=== PATIENT | female | born 1965 ===

== ENCOUNTER 2017-04-02 13:16 | Emergency (ER) | payer SELFPAY ==
--- NOTE | 2017-04-02 14:04 | EDM.PDOC ---
ED HPI GENERAL MEDICAL PROBLEM - General Chief Complaint: Back Pain or Injury Stated Complaint: FELL AND HURT BACK, KIDNEY PROBLEM TOO Time Seen by Provider: 04/02/17 13:40 Source of Information: Reports: Patient History Limitations: Reports: No Limitations - History of Present Illness INITIAL COMMENTS - FREE TEXT/NARRATIVE: Patient is a 51 year old female who presents to the ER with complaints of lower back and right hip pain after falling on the rocks while fishing. Patient reports she is originally from [place] but is here visiting her father for his 70th birthday. She was climbing up the rocks and slipped. She states she twisted with the fall and her chronic pain has worsened. She reports that she is scheduled to have back surgery next month. She states she normally takes 30 mg oxycodone Q 6 hours PRN lower back pain. She reports she took her last pills yesterday, but forgot to bring the remainder of her pain meds. She is asking for "at least 3 or 4 days of pain meds to cover until she can get back home to be seen." She reports that she is here for 10 days. Denies loss of bowel or bladder control. Reports some numbness and tingling to right leg, which is her baseline. No other associated symptoms. Onset: Today Onset Date: 04/02/17 Onset Time: 12:00 Location: Reports: Back Improves with: Reports: Medication Worsens with: Reports: Movement Associated Symptoms: Reports: No Other Symptoms Treatments [employer]: Reports: Other Medication(s) (oxycodone) Right Flank Pain Score (Numeric/FACES): 8 - Related Data Allergies Allergy/AdvReac Type Severity Reaction Status Date / Time cyclobenzaprine Allergy Hives Verified 04/02/17 13:22 [From Flexeril] Sulfa (Sulfonamide Allergy Hives Verified 04/02/17 13:22 Antibiotics) Home Meds: Home Meds QUEtiapine Fumarate [Seroquel] 150 mg PO DAILY 04/02/17 [History] oxyCODONE HCl [Oxycodone HCl] 30 mg PO Q6H PRN 04/02/17 [History] Past Medical History HEENT History: Reports: None Cardiovascular History: Reports: None Respiratory History: Reports: None Gastrointestinal History: Reports: None Genitourinary History: Reports: Pyelonephritis [employer] History: Reports: Musculoskeletal History: Reports: Arthritis, Back Pain, Chronic Neurological History: Reports: None Psychiatric History: Reports: Anxiety, Depression Endocrine/Metabolic History: Reports: None Hematologic History: Reports: None Immunologic History: Reports: None Oncologic (Cancer) History: Reports: None Dermatologic History: Reports: None - Infectious Disease History Infectious Disease History: Reports: None - Past Surgical History HEENT Surgical History: Reports: None Cardiovascular Surgical History: Reports: None Respiratory Surgical History: Reports: None GI Surgical History: Reports: Cholecystectomy Female Surgical History: Reports: Section Endocrine Surgical History: Reports: None Neurological Surgical History: Reports: None Musculoskeletal Surgical History: Reports: None Dermatological Surgical History: Reports: None Social & Family History - Family History Family Medical History: Noncontributory - Tobacco Use Smoking Status *Q: Never Smoker - Caffeine Use Caffeine Use: Reports: Coffee, Soda, Tea - Recreational Drug Use Recreational Drug Use: No ED ROS GENERAL - Review of Systems Review Of Systems: ROS reveals no pertinent complaints other than HPI. ED EXAM,LOWER BACK PAIN/INJURY - Physical Exam Exam: See Below Exam Limited By: No Limitations General Appearance: Alert, WD/WN, No Apparent Distress Head: Atraumatic, Normocephalic Neck: Normal Inspection, Supple, Non-Tender, Full Range of Motion Respiratory/Chest: No Respiratory Distress, Lungs Clear, Normal Breath Sounds, No Accessory Muscle Use, Chest Non-Tender Cardiovascular: Normal Peripheral Pulses, Regular Rate, Rhythm, No Edema, No Gallop, No JVD, No Murmur, No Rub Back Exam: Normal Inspection, Decreased Range of Motion (due to pain), Vertebral Tenderness (Lumbar spine) Extremities: Normal Inspection, Normal Range of Motion, Non-Tender, No Pedal Edema, Normal Capillary Refill Neurological: Alert, Normal Mood/Affect, Normal Dorsiflexion, CN II-XII Intact, Normal Plantar Flexion, Normal Gait, Normal Reflexes, No Motor/Sensory Deficits , Oriented x 3 Psychiatric: Normal Affect, Normal Mood Skin Exam: Warm, Dry, Intact, Normal Color, No Rash Lymphatic: No Adenopathy Course - Vital Signs Last Recorded V/S: Last Vital Signs Temp 36.4 C 04/02/17 15:15 Pulse 73 04/02/17 15:15 Resp 18 04/02/17 15:15 BP 109/71 04/02/17 15:15 Pulse Ox 92 L 04/02/17 15:15 - Orders/Labs/Meds Labs: Laboratory Tests 04/02/17 04/02/17 04/02/17 Range/Units 13:35 13:35 13:43 WBC 7.6 (5.0-10.0) 10^3/uL RBC 4.76 (4.2-5.4) 10^6/uL Hgb 14.3 (12.0-16.0) g/dL Hct 42.5 (37.0-47.0) % MCV 89.3 (80-100) fL MCH 30.0 (27.0-34.0) pg MCHC 33.6 (33.0-35.0) g/dL Plt Count 244 (150-450) 10^3/uL Neut % (Auto) 48.9 (42.2-75.2) % Lymph % (Auto) 43.4 (20.5-50.1) % [place] % (Auto) 6.0 (2-8) % Eos % (Auto) 1.2 (1.0-3.0) % Baso % (Auto) 0.5 (0.0-1.0) % Sodium (135-145) mmol/L Potassium (3.6-5.0) mmol/L Chloride (101-111) mmol/L Carbon Dioxide (21.0-31.0) mmol/L Anion Gap BUN (7-18) mg/dL Creatinine (0.6-1.3) mg/dL Est Cr Clr Drug Dosing mL/min Estimated GFR (MDRD) Glucose (74-105) mg/dL Calcium (8.4-10.2) mg/dl Urine Color Yellow (YELLOW) Urine Appearance Clear (CLEAR) Urine pH 5.5 (5.0-9.0) Ur Specific [place] 1.015 (1.005-1.030) Urine Protein Negative (NEGATIVE) Urine Glucose (UA) Negative (NEGATIVE) Urine Ketones Negative (NEGATIVE) Urine Occult Blood Small H (NEGATIVE) Urine Nitrite Negative (NEGATIVE) Urine Bilirubin Negative (NEGATIVE) Urine Urobilinogen 0.2 (0.2-1.0) mg/dL Ur Leukocyte Esterase Negative (NEGATIVE) Urine RBC 0-5 /HPF Urine WBC 5-10 H (0-5/HPF) /HPF Ur Epithelial Cells Few /HPF Urine Bacteria Many H (0-FEW/HPF) /HPF Urine Opiates Screen Positive H (NEGATIVE) Ur Oxycodone Screen Positive H (NEGATIVE) Urine Methadone Screen Negative (NEGATIVE) Ur Barbiturates Screen Negative (NEGATIVE) U Tricyclic Antidepress Positive H (NEGATIVE) Ur Phencyclidine Scrn Negative (NEGATIVE) Ur Amphetamine Screen Negative (NEGATIVE) U Methamphetamines Scrn Negative (NEGATIVE) Urine MDMA Screen Negative (NEGATIVE) U Benzodiazepines Scrn Negative (NEGATIVE) Urine Cocaine Screen Negative (NEGATIVE) U Marijuana (THC) Screen Negative (NEGATIVE) 04/02/17 Range/Units 13:43 WBC (5.0-10.0) 10^3/uL RBC (4.2-5.4) 10^6/uL Hgb (12.0-16.0) g/dL Hct (37.0-47.0) % MCV (80-100) fL MCH (27.0-34.0) pg MCHC (33.0-35.0) g/dL Plt Count (150-450) 10^3/uL Neut % (Auto) (42.2-75.2) % Lymph % (Auto) (20.5-50.1) % [place] % (Auto) (2-8) % Eos % (Auto) (1.0-3.0) % Baso % (Auto) (0.0-1.0) % Sodium 141 (135-145) mmol/L Potassium 3.9 (3.6-5.0) mmol/L Chloride 102 (101-111) mmol/L Carbon Dioxide 27.0 (21.0-31.0) mmol/L Anion Gap 15.9 BUN 11 (7-18) mg/dL Creatinine 0.8 (0.6-1.3) mg/dL Est Cr Clr Drug Dosing 76.14 mL/min Estimated GFR (MDRD) > 60 Glucose 104 (74-105) mg/dL Calcium 9.3 (8.4-10.2) mg/dl Urine Color (YELLOW) Urine Appearance (CLEAR) Urine pH (5.0-9.0) Ur Specific [place] (1.005-1.030) Urine Protein (NEGATIVE) Urine Glucose (UA) (NEGATIVE) Urine Ketones (NEGATIVE) Urine Occult Blood (NEGATIVE) Urine Nitrite (NEGATIVE) Urine Bilirubin (NEGATIVE) Urine Urobilinogen (0.2-1.0) mg/dL Ur Leukocyte Esterase (NEGATIVE) Urine RBC /HPF Urine WBC (0-5/HPF) /HPF Ur Epithelial Cells /HPF Urine Bacteria (0-FEW/HPF) /HPF Urine Opiates Screen (NEGATIVE) Ur Oxycodone Screen (NEGATIVE) Urine Methadone Screen (NEGATIVE) Ur Barbiturates Screen (NEGATIVE) U Tricyclic Antidepress (NEGATIVE) Ur Phencyclidine Scrn (NEGATIVE) Ur Amphetamine Screen (NEGATIVE) U Methamphetamines Scrn (NEGATIVE) Urine MDMA Screen (NEGATIVE) U Benzodiazepines Scrn (NEGATIVE) Urine Cocaine Screen (NEGATIVE) U Marijuana (THC) Screen (NEGATIVE) Meds: Medications Discontinued Medications Generic Name Dose Route Start Last Admin Trade Name Freq PRN Reason Stop Dose Admin Hydromorphone HCl 1 mg 04/02/17 14:21 04/02/17 14:37 Dilaudid IM 04/02/17 14:22 1 mg ONETIME ONE Administration - Re-Assessments/Exams Free Text/Narrative Re-Assessment/Exam: 04/02/17 13:[address] Tinsley's office (Pain Management physician from [facility] in [place]) whom patient reported to be seeing for pain. Clinic office staff report that patient has not been seen there since November 2015. Called Dr. Christiansen's office who stated they were unable to provide additional information without patient signing consent for release of information. 04/02/17 14:02 Departure - Departure Time of Disposition: 15:17 Disposition: Home, Self-Care 01 Condition: Good Clinical Impression: Low back strain Qualifiers: Encounter type: initial encounter Qualified Code(s): S39.012A - Strain of muscle, fascia and tendon of lower back, initial encounter - Discharge Information Instructions: Back Injury Prevention, [id number], Muscle Strain, [id number] , Back Pain, Adult, [id number], Pain Medicine Instructions, [id number], Chronic Back Pain Referrals: PCP,Unobmisha [Primary Care Provider] - Forms: ED Department Discharge Care Plan Goals: Discussed xray findings indicating no abnormalities with patient. Script sent with patient for [place] 10/325 mg PO Q 8 hrs PRN pain (#5). Instructed patient to follow up with primary care facility or return to ER if symptoms worsen or do not improve.
[2017-04-02 14:08] LABS: CHLORIDE,CL 102 mmol/L (101-111); SODIUM,NA 141 mmol/L (135-145)
[2017-04-02] MEDS ORDERED: HYDROmorphone 1 MG/ML Syringe IM ONE (14:21)
[2017-04-02 15:16] VITALS: BP 109/71
== END 2017-04-02 15:26 | disposition home or self-care (01) ==
LOC: DL.ED 13:16
DX: S39.012A Strain of muscle, fascia and tendon of lower back, initial encounter (principal); M19.90 Unspecified osteoarthritis, unspecified site; Z88.8 Allergy status to other drugs, medicaments and biological substances; Z88.2 Allergy status to sulfonamides; W20.8XXA Other cause of strike by thrown, projected or falling object, initial encounter; Y93.89 Activity, other specified
CPT/HCPCS: 36415; 72100; 73502; 80048; 80305; 81001; 85025; 96372; 99283; J1170